=== PATIENT | female | born 1950 | race Caucasian/White ===

== ENCOUNTER 2020-09-15 14:49 | Outpatient (REF) | payer MEDICARE, SELFPAY ==
[2020-09-15 16:51] LABS: MANUAL DIFF FLAG NO
[2020-09-15 16:54] LABS: Basophils Absolute Auto 0.1 X10*3/uL (0.0-0.2); Basophils Percent Auto 0.6 % (0-2); Eosinophils Absolute Auto 0.2 X10*3/uL (0.0-0.4); Eosinophils Percent Auto 2.4 % (0-4); Hematocrit 45.4 % (37-47); Hemoglobin 14.6 g/dl (12.0-16.0); Imm Gran Abs Auto 0.03 X10*3/uL (0.00-0.03); Imm Gran Pct Auto 0.4 % (0.0-0.4); Lymphocytes Absolute Auto 1.6 X10*3/uL (1.2-4.9); Lymphocytes Percent Auto 19.6 % (20-40); Mean Corpuscular HGB Conc 32.2 g/dl (31.0-35.0); Mean Corpuscular Hemoglobin 28.1 pg (27.0-33.0); Mean Corpuscular Volume 87.3 fL (80-98); Mean Platelet Volume 10.3 fL (9.4-12.3); Monocytes Absolute Auto 0.6 X10*3/uL (0.1-1.2); Monocytes Percent Auto 7.1 % (2-11); Neutrophils Absolute Auto 5.7 X10*3/uL (2.0-8.3); Neutrophils Percent Auto 69.9 % (45-73); Platelet Count 254 X10*3/uL (160-400); Red Cell Distribution Width 14.2 % (11.0-16.0); White Blood Count 8.2 X10*3/uL (4.8-10.8)
[2020-09-15 17:12] LABS: Anion Gap 18 (12-20); Blood Urea Nitrogen 19 mg/dL (9-16); Calcium 9.7 mg/dL (8.4-10.2); Carbon Dioxide 24 mmol/L (22-29); Chloride 101 mmol/L (96-108); Estimated Glomerular Filt Rate > 60; Glucose Random 114 mg/dL (60-115); Sodium 139 mmol/L (135-145)
[2020-09-16 04:36] LABS: LDL Cholesterol Direct 91 mg/dL (<100)
[2020-09-16 06:55] LABS: Estimated Average Glucose 114 mg/dL; Hemoglobin A1c % 5.6 %
== END 2020-09-15 14:50 | disposition home or self-care (01) ==
LOC: HO.HMGCLDS 14:49
PROVIDERS: PCP Internal Medicine; Visit Provider Internal Medicine
DX: R73.01 Impaired fasting glucose (principal); I10 Essential (primary) hypertension; E78.9 Disorder of lipoprotein metabolism, unspecified; M62.830 Muscle spasm of back
CPT/HCPCS: 36415; 80048; 83036; 83721; 85025

== ENCOUNTER 2021-08-21 12:29 | Outpatient (REF) | payer MEDICARE, SELFPAY ==
[2021-08-21 13:53] LABS: MANUAL DIFF FLAG NO
[2021-08-21 13:59] LABS: Basophils Absolute Auto 0.1 X10*3/uL (0.0-0.2); Basophils Percent Auto 0.9 % (0-2); Eosinophils Absolute Auto 0.2 X10*3/uL (0.0-0.4); Eosinophils Percent Auto 2.7 % (0-4); Hematocrit 45.9 % (37.0-47.0); Hemoglobin 14.5 g/dl (12.0-16.0); Imm Gran Abs Auto 0.03 X10*3/uL (0.00-0.03); Imm Gran Pct Auto 0.4 % (0.0-0.4); Lymphocytes Absolute Auto 1.6 X10*3/uL (1.2-4.9); Lymphocytes Percent Auto 19.3 % (20-40); Mean Corpuscular HGB Conc 31.6 g/dl (31.0-35.0); Mean Corpuscular Hemoglobin 26.9 pg (27.0-33.0); Mean Platelet Volume 9.8 fL (9.4-12.3); Monocytes Absolute Auto 0.8 X10*3/uL (0.1-1.2); Monocytes Percent Auto 9.6 % (2-11); Neutrophils Absolute Auto 5.5 x10*3/uL (2.0-8.3); Neutrophils Percent Auto 67.1 % (45-73); Platelet Count 274 X10*3/uL (160-400); Red Cell Distribution Width 15.3 % (11.0-16.0); White Blood Count 8.2 X10*3/uL (4.8-10.8)
[2021-08-21 14:10] LABS: Estimated Average Glucose 120 mg/dL; Hemoglobin A1C 151.5229 umol/L; Hemoglobin A1c % 5.8 %
[2021-08-21 14:17] LABS: Alanine Aminotransferase 16 U/L (0-31); Albumin Level 4.4 g/dL (3.5-5.0); Alkaline Phosphatase 136 U/L (39-117); Anion Gap 14 (12-20); Aspartate Amino Transferase 20 U/L (5-31); Bilirubin Total 0.4 mg/dL (0.0-1.0); Blood Urea Nitrogen 16 mg/dL (9-16); Calcium 10.1 mg/dL (8.4-10.2); Carbon Dioxide 26 mmol/L (22-29); Chloride 100 mmol/L (96-108); Estimated Glomerular Filt Rate > 60; Glucose Random 131 mg/dL (60-115); Potassium 3.9 mmol/L (3.3-5.1); Sodium 136 mmol/L (135-145); Total Protein 7.7 g/dL (6.5-8.0)
[2021-08-21 14:41] LABS: TSH reflex Free T4 6.84 uIU/mL (0.32-4.0)
[2021-08-21 15:13] LABS: Free T4 (Free Thyroxine) 0.93 ng/dL (0.71-1.85)
== END 2021-08-21 12:30 | disposition home or self-care (01) ==
LOC: HO.HMGCLDS 12:29
PROVIDERS: PCP Internal Medicine; Visit Provider Internal Medicine
DX: F33.2 Major depressive disorder, recurrent severe without psychotic features (principal); I10 Essential (primary) hypertension; M62.830 Muscle spasm of back; R73.01 Impaired fasting glucose; E66.09 Other obesity due to excess calories; G47.9 Sleep disorder, unspecified; E78.9 Disorder of lipoprotein metabolism, unspecified
CPT/HCPCS: 36415; 80053; 83036; 84439; 84443; 85025

== ENCOUNTER 2021-12-07 15:06 | Outpatient (REF) | payer MEDICARE, SELFPAY ==
[2021-12-07 16:43] LABS: Estimated Average Glucose 120 mg/dL; Hemoglobin A1c % 5.8 %
[2021-12-07 16:55] LABS: Alanine Aminotransferase 10 U/L (0-31); Albumin Level 4.2 g/dL (3.5-5.0); Alkaline Phosphatase 149 U/L (39-117); Anion Gap 17 (12-20); Aspartate Amino Transferase 21 U/L (5-31); Bilirubin Total 0.6 mg/dL (0.0-1.0); Blood Urea Nitrogen 15 mg/dL (9-16); Calcium 9.4 mg/dL (8.4-10.2); Carbon Dioxide 25 mmol/L (22-29); Chloride 99 mmol/L (96-108); Estimated Glomerular Filt Rate > 60; Glucose Random 125 mg/dL (60-115); Sodium 137 mmol/L (135-145); Total Protein 7.4 g/dL (6.5-8.0)
[2021-12-07 17:14] LABS: TSH reflex Free T4 2.63 uIU/mL (0.32-4.0)
== END 2021-12-07 15:07 | disposition home or self-care (01) ==
LOC: HO.HMGCLDS 15:06
PROVIDERS: PCP Internal Medicine; Visit Provider Internal Medicine
DX: E78.9 Disorder of lipoprotein metabolism, unspecified (principal); F33.2 Major depressive disorder, recurrent severe without psychotic features; I10 Essential (primary) hypertension; N85.9 Noninflammatory disorder of uterus, unspecified; R00.0 Tachycardia, unspecified; R73.01 Impaired fasting glucose; E66.09 Other obesity due to excess calories
CPT/HCPCS: 36415; 80053; 83036; 84443

== ENCOUNTER → 2022-02-27 13:11 | Outpatient (BNVA) | payer MEDICARE, SELFPAY | PROVIDERS: PCP Internal Medicine; Referring Provider Internal Medicine; Visit Provider Internal Medicine | DX: Z01.810 Encounter for preprocedural cardiovascular examination (principal); R00.0 Tachycardia, unspecified | CPT/HCPCS: 93005; 99202 ==

== ENCOUNTER → 2022-03-13 12:55 | Outpatient (REF) | payer MEDICARE, SELFPAY ==
--- NOTE | 2022-03-13 12:58 | CA_ITS ---
Transthoracic Echocardiogram Patient (Last, First, Middle): Martha Rivas, Gender: Female Date of : 1950 Age: 71 Procedure Date: 03/13/2022 Procedure Type: Transthoracic Echocardiogram Location: OP Height: 154.94 cm Weight: 102.06 kg BSA: 1.99 m2 Heart Rate: bpm BP: 134 / 80 mmHg Fuel Cell Battery Technician: Referring MD: Dawood Chavez MD Camp Attendant: Mahendra Duncan MD Symptoms: R00.0 - Tachycardia, unspecified Study Quality: Adequate ECG Rhythm: Sinus Tachycardia Conclusions: - 1. Normal LV systolic function with grade 1 diastolic dysfunction 2. Normal cardiac valvular Doppler 3. Normal RV systolic pressure with low right atrial pressures 4. No gross pericardial effusion Findings Left Ventricle Normal left ventricular size, thickness, and systolic function. The visually estimated ejection fraction is between 60-65%. Spectral Doppler is indicative of an impaired relaxation filling pattern. E/E prime ratio is <8, consistent with normal filling pressures. Evidence suggests grade I (mild) diastolic dysfunction. Right Ventricle Normal right ventricular cavity size and systolic function. Atria The left atrium is normal in size. There is lipomatous hypertrophy of the interatrial septum. There is no evidence of interatrial shunt. The right atrium is normal in size. Aortic Valve The aortic valve structure and function is likely normal. There is no aortic valve stenosis. There is no aortic valve regurgitation. Mitral Valve Likely normal mitral valve structure and function. There is trace mitral valve regurgitation. There is no mitral valve stenosis. Pulmonic Valve The pulmonic valve was not well visualized. Tricuspid Valve Likely normal tricuspid valve structure and function. There is trace tricuspid valve regurgitation. The right ventricular systolic pressure is normal. The right ventricular systolic pressure is 18 mmHg. Low right atrial pressure. There is no evidence of pulmonary hypertension. Great Vessels All visible segments of the aorta are normal in size. The pulmonary artery was not well visualized. Venous The inferior vena cava is collapsed, consistent with reduced intravascular volume. Pericardium/Pleural There is no evidence of pericardial effusion. Prior Study Comparison No prior study available for comparison. Measurements 2D Linear Measurements IVSd: 1.18 0.6-0.9/0.6-1.0 cm LVIDd: 4.18 3.9-5.3/4.2-5.9 cm LVIDd Index: 2.10 2.4-3.2/2.2-3.1 cm/m2 LVIDs: 2.60 2.0-3.6 cm LVPWd: 1.10 0.7-1.1 cm Ao Root: 3.20 2.1-3.5 cm LA Diam: 2.90 2.7-3.8/3.0-4.0 cm LAIDs Index: 1.46 1.5-2.3 cm/m2 LV Mass: 204.41 67-162/88-224 g LV Mass Index: 102.72 43-95/49-115 g/m2 LVOT Diam: 2.20 3.0+(-)1.3 cm Mitral Valve MV Pk E: 0.48 MV PK A: 1.04 MV Decel Time: 115.00 E/A: 0.50 E'Lateral: 7.18 E'Medial: 5.44 E/E' Med: 8.80 E/E' Lat: 6.60 PHT: 34.00 MVA PHT: 6.47 Decel Granite: 4.15 Aortic Valve AoV Pk Luis Carlos: 1.38 AoV Mn Luis Carlos: 0.91 AoV VTI: 0.22 AoV Pk Grad: 8.00 Aov Mn Grad: 4.00 LISA Cont.VTI: 3.16 LVOT LVOT Pk Luis Carlos: 1.04 LVOT Mn Luis Carlos: 0.65 LVOT VTI: 0.18 LVOT Pk Grad: 4.00 LVOT Mn Grad: 2.00 LVOT Diam: 2.20 LVOT Area: 3.80 Diastolic Function MV Pk E: 0.48 MV Pk A: 1.04 E/A: 0.50 E'Medial: 5.44 E/E' Med: 8.80 E' Laterial: 7.18 E/E' Lat: 6.60 Right Ventricle TAPSE (mm): 36.00 TVS' Luis Carlos: 19.00 Tricuspid Valve TR Pk Luis Carlos: 1.95 TR Pk Grad: 15.00 RA Press: 3.00 RVSP: 18.00 Great Vessels Aorta Ao Root-2D: 3.20 2.0-3.7 cm Ao Asc: 3.70 2.1-3.4 cm Pulmonary Valve PV Pk Luis Carlos: 0.94 Peak PV Grad: 4.00 Updated in Other Vendor System with Status of Final Mahendra Duncan MD electronically signed on 03/13/2022 4:03:35 PM with status of Final
== END ==
LOC: HO.CARD 12:55
PROVIDERS: PCP Internal Medicine; Visit Provider Internal Medicine
DX: Z01.810 Encounter for preprocedural cardiovascular examination (principal); R00.0 Tachycardia, unspecified
CPT/HCPCS: 93306

== ENCOUNTER 2022-07-03 14:07 | Outpatient (REF) | payer MEDICARE, SELFPAY ==
[2022-07-03 16:31] LABS: MANUAL DIFF FLAG NO
[2022-07-03 16:42] LABS: Basophils Absolute Auto 0.1 X10*3/uL (0.0-0.2); Basophils Percent Auto 0.7 % (0-2); Eosinophils Absolute Auto 0.2 X10*3/uL (0.0-0.4); Eosinophils Percent Auto 2.5 % (0-4); Hemoglobin 13.4 g/dl (12.0-16.0); Imm Gran Abs Auto 0.04 X10*3/uL (0.00-0.03); Imm Gran Pct Auto 0.5 % (0.0-0.4); Lymphocytes Absolute Auto 1.3 X10*3/uL (1.2-4.9); Lymphocytes Percent Auto 15.3 % (20-40); Mean Corpuscular HGB Conc 30.5 g/dl (31.0-35.0); Mean Corpuscular Hemoglobin 25.7 pg (27.0-33.0); Mean Corpuscular Volume 84.3 fL (80.0-98.0); Mean Platelet Volume 9.8 fL (9.4-12.3); Monocytes Absolute Auto 0.5 X10*3/uL (0.1-1.2); Monocytes Percent Auto 6.5 % (2-11); Neutrophils Absolute Auto 6.1 x10*3/uL (2.0-8.3); Neutrophils Percent Auto 74.5 % (45-73); Platelet Count 324 X10*3/uL (160-400); Red Blood Count 5.22 X10*6/uL (4.20-5.50); Red Cell Distribution Width 16.9 % (11.0-16.0); White Blood Count 8.2 X10*3/uL (4.8-10.8)
[2022-07-03 17:01] LABS: Alanine Aminotransferase 12 U/L (0-31); Alkaline Phosphatase 139 U/L (39-117); Anion Gap 16 (12-20); Aspartate Amino Transferase 20 U/L (5-31); Bilirubin Total 0.4 mg/dL (0.0-1.0); Blood Urea Nitrogen 13 mg/dL (9-16); Calcium 9.3 mg/dL (8.4-10.2); Carbon Dioxide 26 mmol/L (22-29); Chloride 103 mmol/L (96-108); Estimated Glomerular Filt Rate 53; Glucose Random 185 mg/dL (60-115); Potassium 3.8 mmol/L (3.3-5.1); Sodium 141 mmol/L (135-145)
[2022-07-03 17:17] LABS: TSH reflex Free T4 5.32 uIU/mL (0.32-4.0)
[2022-07-03 17:49] LABS: Free T4 (Free Thyroxine) 0.98 ng/dL (0.71-1.85)
[2022-07-05 00:48] LABS: LDL Cholesterol Direct 123 mg/dL (<100)
== END 2022-07-03 14:08 | disposition home or self-care (01) ==
LOC: HO.HMGCLDS 14:07
PROVIDERS: PCP Internal Medicine; Visit Provider Internal Medicine
DX: E03.8 Other specified hypothyroidism (principal); E66.09 Other obesity due to excess calories; E78.9 Disorder of lipoprotein metabolism, unspecified; F33.2 Major depressive disorder, recurrent severe without psychotic features; G47.9 Sleep disorder, unspecified; I10 Essential (primary) hypertension; M62.830 Muscle spasm of back; R73.01 Impaired fasting glucose
CPT/HCPCS: 36415; 80053; 83721; 84439; 84443; 85025

== ENCOUNTER 2023-02-25 14:14 | Outpatient (AMB) | payer MEDICARE, SELFPAY ==
[2023-02-25 14:23] VITALS: BP 122/84; PULSE 114; O2SAT 94; BMI 47.7
--- NOTE | 2023-02-25 14:23 | MHC.PC.OV ---
Vital Signs 02/25/23 14:23 Height 5 ft 1 in Weight 252 lb 4 oz BMI 47.7 BP 122/84 Blood Pressure Location Lt brachial Position Sitting Pulse 114 H Pulse Source Pulse Oximeter Pulse Oximetry (%) 94 Oxygen Delivery Method Room Air Intake Visit Reasons: HDF/Blood Clots~ Allergies No Known Allergies Allergy (Verified 02/25/23 14:24) Environmental Allergy (Unknown, Uncoded 02/27/22 13:20) Unknown Medication List - Last Reconciled 02/25/23 by Diaz Borges MD aripiprazole (Abilify) 15 mg PO BEDTIME duloxetine (Cymbalta) 60 mg PO DAILY levothyroxine 50 mcg PO DAILY 90 days lisinopril 5 mg PO DAILY 90 days rivaroxaban (Xarelto) 15 mg PO BID 21 days simvastatin 20 mg PO BEDTIME tizanidine 4 mg PO BID 90 days Tobacco use date assessed: 02/25/23 Fall risk assessment: No Falls in past year Last assessed Fall Risk: 02/25/23 Dental Screening Dental Screen Date: 02/25/23 Did you have a dental visit in the last 12 months?: No Did you have a dental problem in the last 6 months where you did not have access to dental care?: No Was dental information given to patient?: Patient declined HPI HDF/Blood Clots~ HPI Details Patient is a 32-year-old female who has not been seen in our office since early this year came in today to have a follow-up from emergency room visit dated 02/26/2023. She has a history of hypertension, hyperlipidemia, recently diagnosed with DVT of left lower extremity. She presented to emergency room with chief complaint of pain to her right extremity and found to have DVT bilateral. She did verbalize that Eliquis that was prescribed for DVT is too expensive. However it was found that co-pay is 40 dollars upon discharge patient was instructed to restart the medication. During the hospital course patient started having vaginal bleeding ultrasound transvaginal revealed 5.[address] scan of abdomen and pelvis revealed 7.1 cm cervical mass with proximal dilated fluid filled uterus. There were multiple enlarged mesenteric, pelvic, retroperitoneal lymph nodes along with intermediate hepatic lesion highly concerning for metastatic disease She has already seen Oncology [facility] and will be starting chemotherapy soon Patient suffers from depression, and is seeing a psychiatrist , she has a diagnosis of bipolar disorder Hypothyroidism: Continue levothyroxine 50 mcg I have told her to have thyroid checked when she have next set of lab ordered before chemotherapy Patient is also on Tizenadin 4 mg, for chronic back spasms. [facility] Medical History Impaired fasting blood sugar Difficulty sleeping Depression, major, severe recurrence Hypertension, essential Lipid disorder Back muscle spasm Surgical History History of umbilical hernia repair Family History Father Brain tumor Mother Pneumonia Maternal Grandfather No problems noted. Maternal Grandmother No problems noted. Paternal Grandfather No problems noted. Paternal Grandmother No problems noted. Social History Housing: Other (mobile home) Patient Tobacco Use Status: Never used Tobacco e-Cigarette/Vaping Use: Never Used Second Hand Smoke Exposure: No Current occupational status: retired Cognitive needs: No Hearing needs: No Vision needs: Yes Questionnaire PHQ-9 Over the last 2 weeks, how often have you been bothered by any of the following problems? 1. Little interest or pleasure in doing things: more than half the days 2. Feeling down, depressed, or hopeless: nearly every day 3. Trouble falling or staying asleep, or sleeping too much: nearly every day 4. Feeling tired or having little energy: more than half the days 5. Poor appetite or overeating: nearly every day 6. Feeling bad about yourself - or that you are a failure or have let yourself or your family down: nearly every day 7. Trouble concentrating on things, such as reading the newspaper or watching television: more than half the days 8. Moving or speaking so slowly that other people could have noticed. Or the opposite - being so fidgety or restless that you have been moving around a lot more than usual: several days 9. Thoughts that you would be better off or of hurting yourself in some way: not at all Total score: 19 Depression Screening Interpretation: Positive Depression Screening Follow-up: Existing condition and In treatment Depression Screening Done: Yes 14720 - PHQ-9 Billing: Yes Source: Developed by Drs. Janak Miller, Brittney Culp, Jak García and colleagues, with an educational cordell from [employer]. Thrive Questionnaire Date Thrive assessed: 02/25/23 I am a: Patient What is your living situation today?: I have a steady place to live Within the past 12 months, did the food you bought not last and you didn't have the money to get more?: Never true Within the past 12 months, did you worry whether your food would run out before you got money to buy more?: Never true Do you have trouble paying for medicines?: Yes Do you have trouble getting transportation to medical appointments?: Yes Do you have trouble paying your heating and electricity bill?: Yes Do you have trouble taking care of your child, family member or friend?: No Do you have trouble with day-to-day activities such as bathing, preparing meals, shopping, managing finances, etc.?: No Are you currently unemployed and looking for a job?: No Are you interested in more education?: No Please select the resources that you would like help with: None Currently or been in a relationship where the following occur: no concerns reported MANAN-7 AMB Questionnaire MANAN-7 Date MANAN - 7 assessed: 02/25/23 Feeling nervous, anxious, or on edge: 2 = More than half the days Not being able to stop or control worryin = More than half the days Worrying too much about different things: 2 = More than half the days Trouble relaxin = More than half the days Being so restless that it is hard to sit still: 2 = More than half the days Becoming easily annoyed or irritable: 2 = More than half the days Feeling afraid as if something awful might happen: 2 = More than half the days Total MANAN-7 score (0-4 normal; 5-9 mild; 10-14 moderate; 15-21 severe): 14 Source: Developed by Drs. Janak Miller, Jak Marsh and colleagues, with an educational cordell from [employer]. MANAN-7 Assessment Billing MANAN-7 Assessment Tool: MANAN-7 Assessment 23092 Review of Systems Const Denies chills and Denies fever(s) ENT Denies epistaxis and Denies nasal discharge Card Denies chest pain Resp Denies chest congestion, Denies cough and Denies hemoptysis GI Denies diarrhea and Denies nausea Skin/Breast Denies rash Neuro Reports no additional complaints Psych Reports no additional complaints Endo Reports no additional complaints Physical exam (Primary Care) Vital Signs: Last Vital Signs Pulse 114 H 02/25/23 14:23 BP 122/84 02/25/23 14:23 Pulse Ox 94 02/25/23 14:23 Oxygen Delivery Method Room Air 02/25/23 14:23 BMI result Body Mass Index 47.7 Tobacco/Smoking Status: Tobacco use Status Tobacco use date assessed 02/25/23 02/25/23 14:26 Patient Tobacco Use Status Never used Tobacco 02/25/23 14:26 e-Cigarette/Vaping Use Never Used 02/25/23 14:26 PHQ-9: PHQ-9 Score PHQ-9: Total score 19 02/25/23 15:02 Depression Screening Interpretation: Positive Depression Screening Follow-up: Existing condition and In treatment Thrive Assessment: Date of Thrive Assessment Date Thrive assessed 02/25/23 02/25/23 15:02 Currently or been in a relationship where the following occur: no concerns reported Const General: cooperative, comfortable and no acute distress Orientation/consciousness: patient oriented x3 HENMT Head: Yes normocephalic Eyes General: appearance normal, both eyes and all related structures Neck Neck: Yes supple Resp Effort & Inspection: normal respiratory effort, no cough and no stridor Cardio Rhythm: regular rhythm Heart sounds: S1 normal heart sound present and S2 normal heart sound present Skin General skin exam: turgor normal Neuro General: patient oriented x3, tone normal and moves all extremities Assessment and Plan Assessment & Plan (1) Metastatic cancer: Code(s): C79.9 - Secondary malignant neoplasm of unspecified site Qualifiers: Area of secondary neoplastic involvement: genital organ Qualified Code(s): C79.82 - Secondary malignant neoplasm of genital organs (2) Acute deep venous thrombosis (DVT) determined by ultrasound: Code(s): I82.409 - Acute embolism and thrombosis of unspecified deep veins of unspecified lower extremity (3) Other specified hypothyroidism: Code(s): E03.8 - Other specified hypothyroidism (4) Depression, major, severe recurrence: Code(s): F33.2 - Major depressive disorder, recurrent severe without psychotic features Qualifiers: Psychotic features: with psychotic features Qualified Code(s): F33.3 - Major depressive disorder, recurrent, severe with psychotic symptoms (5) Bipolar disorder: Code(s): F31.9 - Bipolar disorder, unspecified Qualifiers: Active/Remission status: in full remission Most recent bipolar episode type: depressed Qualified Code(s): F31.76 - Bipolar disorder, in full remission, most recent episode depressed (6) Back muscle spasm: Code(s): M62.830 - Muscle spasm of back Plan Patient is a 32-year-old female who has not been seen in our office since early this year came in today to have a follow-up from emergency room visit dated 02/26/2023. She has a history of hypertension, hyperlipidemia, recently diagnosed with DVT of left lower extremity. She presented to emergency room with chief complaint of pain to her right extremity and found to have DVT bilateral. She did verbalize that Eliquis that was prescribed for DVT is too expensive. However it was found that co-pay is 40 dollars upon discharge patient was instructed to restart the medication. During the hospital course patient started having vaginal bleeding ultrasound transvaginal revealed 5.[address] scan of abdomen and pelvis revealed 7.1 cm cervical mass with proximal dilated fluid filled uterus. There were multiple enlarged mesenteric, pelvic, retroperitoneal lymph nodes along with intermediate hepatic lesion highly concerning for metastatic disease She has already seen Oncology [facility] and will be starting chemotherapy soon Patient suffers from depression, and is seeing a psychiatrist , she has a diagnosis of bipolar disorder Hypothyroidism: Continue levothyroxine 50 mcg I have told her to have thyroid checked when she have next set of lab ordered before chemotherapy Patient is also on Tizenadin 4 mg, for chronic back spasms. 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
== END 2023-02-25 15:19 | disposition home or self-care (01) ==
PROVIDERS: PCP Internal Medicine; Visit Provider Internal Medicine
DX: C79.82 Secondary malignant neoplasm of genital organs (principal); I82.409 Acute embolism and thrombosis of unspecified deep veins of unspecified lower extremity; F33.3 Major depressive disorder, recurrent, severe with psychotic symptoms; E03.8 Other specified hypothyroidism; M62.830 Muscle spasm of back
CPT/HCPCS: 99214

== ENCOUNTER 2024-01-02 10:30 | Outpatient (AMB) | payer MEDICARE, SELFPAY ==
[2024-01-02 10:44] VITALS: BP 136/82; PULSE 90; O2SAT 97
--- NOTE | 2024-01-02 10:44 | A.OFFPC_ITS ---
Vital Signs 01/02/24 10:44 Weight 220 lb 6 oz BP 136/82 Blood Pressure Location Rt brachial Position Sitting Pulse 90 Pulse Source Palpation Pulse Oximetry (%) 97 Oxygen Delivery Method Room Air Intake Visit Reasons: Medication Refill won't be approve until seen Allergies No Known Allergies Allergy (Verified 02/25/23 14:24) Environmental Allergy (Unknown, Uncoded 02/27/22 13:20) Unknown Medication List - Last Reconciled 01/02/24 by Diaz Borges MD tizanidine 4 mg PO BID 90 days Tobacco use date assessed: 01/02/24 Fall risk assessment: No Falls in past year Last assessed Fall Risk: 01/02/24 Dental Screening Dental Screen Date: 01/02/24 Did you have a dental visit in the last 12 months?: No Did you have a dental problem in the last 6 months where you did not have access to dental care?: No Was dental information given to patient?: No HPI Medication Refill won't be approve until seen HPI Details Patient is 73-year-old female who was last seen February last year Patient is going to [facility] for the treatment of Uterine serous carcinoma stage IVB She is undergoing chemotherapy every month and blood test before the chemotherapy She came in today to get a script for tizanidine 2 mg that she takes once a day and sometimes 2 times a day Patient have a chronic lumbar back pain and medication helps her with the spasms She offer no other complaints Patient will return in 6 months for follow-up appointment [facility] Medical History Impaired fasting blood sugar Difficulty sleeping Depression, major, severe recurrence Hypertension, essential Lipid disorder Back muscle spasm Surgical History History of umbilical hernia repair Family History Father Brain tumor Mother Pneumonia Maternal Grandfather No problems noted. Maternal Grandmother No problems noted. Paternal Grandfather No problems noted. Paternal Grandmother No problems noted. Social History Housing: Other (mobile home) Patient Tobacco Use Status: Never used Tobacco e-Cigarette/Vaping Use: Never Used Second Hand Smoke Exposure: No Current occupational status: retired Cognitive needs: No Hearing needs: No Vision needs: Yes Questionnaire PHQ-9 Over the last 2 weeks, how often have you been bothered by any of the following problems? 54834 - PHQ-9 Billing: Patient declined-do not bill Source: Developed by Drs. Janak Miller, Brittney Culp, Jak García and colleagues, with an educational cordell from [employer]. Thrive Questionnaire Date Thrive assessed: 02/25/23 I am a: Patient What is your living situation today?: I have a steady place to live Within the past 12 months, did the food you bought not last and you didn't have the money to get more?: Never true Within the past 12 months, did you worry whether your food would run out before you got money to buy more?: Never true Do you have trouble paying for medicines?: No Do you have trouble getting transportation to medical appointments?: Yes Do you have trouble paying your heating and electricity bill?: No Do you have trouble taking care of your child, family member or friend?: No Do you have trouble with day-to-day activities such as bathing, preparing meals, shopping, managing finances, etc.?: No Are you interested in more education?: No Please select the resources that you would like help with: None Currently or been in a relationship where the following occur: No concerns reported THRIVE Score: 1 AUDIT C Alcohol Use Questionnaire (AUDIT-C) 1. How often do you have a drink containing alcohol?: Never Total Score: 0 MANAN-7 AMB Questionnaire MANAN-7 Date MANAN - 7 assessed: 02/25/23 Feeling nervous, anxious, or on edge: 0 = Not at all Not being able to stop or control worryin = Not at all Worrying too much about different things: 0 = Not at all Trouble relaxin = Not at all Being so restless that it is hard to sit still: 0 = Not at all Becoming easily annoyed or irritable: 0 = Not at all Feeling afraid as if something awful might happen: 0 = Not at all Total MANAN-7 score (0-4 normal; 5-9 mild; 10-14 moderate; 15-21 severe): 0 Source: Developed by Drs. Janak Miller, Brittney Culp, Jak García and colleagues, with an educational cordell from [employer]. Review of Systems Const Denies chills and Denies fever(s) ENT Denies epistaxis and Denies nasal discharge Card Denies chest pain Resp Denies chest congestion, Denies cough and Denies hemoptysis GI Denies diarrhea and Denies nausea Skin/Breast Denies rash Neuro Reports no additional complaints Psych Reports no additional complaints Endo Reports no additional complaints Physical exam (Primary Care) Vital Signs: Last Vital Signs Pulse 90 01/02/24 10:44 BP 136/82 01/02/24 10:44 Pulse Ox 97 01/02/24 10:44 Oxygen Delivery Method Room Air 01/02/24 10:44 Tobacco/Smoking Status: Tobacco use Status Tobacco use date assessed 01/02/24 01/02/24 10:46 Patient Tobacco Use Status Never used Tobacco 01/02/24 10:46 e-Cigarette/Vaping Use Never Used 01/02/24 10:46 Thrive Assessment: Date of Thrive Assessment Date Thrive assessed 02/25/23 01/02/24 10:46 Currently or been in a relationship where the following occur: No concerns reported Const General: cooperative, comfortable and no acute distress Orientation/consciousness: patient oriented x3 HENMT Head: Yes normocephalic Eyes General: appearance normal, both eyes and all related structures Neck Neck: Yes supple Resp Effort & Inspection: normal respiratory effort, no cough and no stridor Cardio Rhythm: regular rhythm Heart sounds: S1 normal heart sound present and S2 normal heart sound present Skin General skin exam: turgor normal Neuro General: patient oriented x3, tone normal and moves all extremities Extrem Right lower extremity: no edema Left lower extremity: no edema Assessment and Plan Assessment & Plan (1) Back muscle spasm: Code(s): M62.830 - Muscle spasm of back (2) Metastatic cancer: Code(s): C79.9 - Secondary malignant neoplasm of unspecified site Qualifiers: Area of secondary neoplastic involvement: genital organ Qualified Code(s): C79.82 - Secondary malignant neoplasm of genital organs Plan Patient is 73-year-old female who was last seen February of last year Patient is going to [facility] for the treatment of Uterine serous carcinoma stage IVB She is undergoing chemotherapy every month and blood test before the chemotherapy She came in today to get a script for tizanidine 2 mg that she takes once a day and sometimes 2 times a day Patient have a chronic lumbar back pain and medication helps her with the spasms She offer no other complaints Patient will return in 6 months for follow-up appointment Medications: Changed From tizanidine 4 mg PO BID 90 days 180 tabs 1RF muscle spasticity To tizanidine 4 mg PO BID 90 days PRN 180 tabs 0RF muscle spasticity Coding Level of Care Code Est Pt Level 3 (26740) Diagnoses Back muscle spasm M62.830 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
== END 2024-01-02 11:02 | disposition home or self-care (01) ==
PROVIDERS: PCP Internal Medicine; Visit Provider Internal Medicine
DX: M62.830 Muscle spasm of back (principal); C79.82 Secondary malignant neoplasm of genital organs

== ENCOUNTER → 2024-01-02 10:30 | Outpatient (BNVA) | payer MEDICARE, SELFPAY | PROVIDERS: PCP Internal Medicine; Visit Provider Internal Medicine | DX: M62.830 Muscle spasm of back (principal); C79.82 Secondary malignant neoplasm of genital organs | CPT/HCPCS: 99212 ==

== ENCOUNTER 2024-04-29 08:27 | Outpatient (AMB) | payer MEDICARE, SELFPAY ==
--- NOTE | 2024-04-29 09:32 | A.OFFPC_ITS ---
Intake Visit Reasons: Med Follow up Allergies No Known Allergies Allergy (Verified 04/29/24 09:33) Environmental Allergy (Unknown, Uncoded 02/27/22 13:20) Unknown Medication List - Last Reconciled 04/29/24 by Diaz Borges MD tizanidine 4 mg PO BID PRN 90 days Tobacco use date assessed: 04/29/24 Fall risk assessment: No Falls in past year Last assessed Fall Risk: 04/29/24 Dental Screening Dental Screen Date: 04/29/24 Did you have a dental visit in the last 12 months?: No Did you have a dental problem in the last 6 months where you did not have access to dental care?: No Was dental information given to patient?: Patient has dentist HPI Med Follow up HPI Details Telehealth Attestation Documentation of this visit conducted via phone call is accurate to the best of my ability. This is a tele health medical visit - The patient is a 73-year-old female pr esenting with issues related to pain management. - Currently under the care of Dr. Spicer for both cancer treatment and pain management. Patient has uterine serous carcinoma stage IVB - Expressed concerns regarding medicatio n refills for muscle spasms - Taking Oxycodone, through Dr. Spicer - Transition guidance to communicate nee ds to Dr. Spicer emphasized during the call. Denies it in that patient is taking muscle spasms need to be filled through pain management Plan The patient's ongoing management for cancer-related pain and muscle spasms will continue under the supervision of Dr. Spicer, her oncologist. As part of transitioning all pain management to him, she has been instructed to communicate her need for muscle relaxants, such as Tizanidine, especially given her twice- daily use for spasm control. Ensuring accurate medication lists and discussions about current needs during her ongoing interaction with Dr. Spicer will support her tailored care plan. It is essential to maintain consistent communication with her oncology provider to address and organize her comprehensive pain management effectively. [facility] Medical History Impaired fasting blood sugar Difficulty sleeping Depression, major, severe recurrence Hypertension, essential Lipid disorder Back muscle spasm Surgical History History of umbilical hernia repair Family History Father Brain tumor Mother Pneumonia Maternal Grandfather No problems noted. Maternal Grandmother No problems noted. Paternal Grandfather No problems noted. Paternal Grandmother No problems noted. Social History Housing: Other (mobile home) Patient Tobacco Use Status: Never used Tobacco e-Cigarette/Vaping Use: Never Used Second Hand Smoke Exposure: No Current occupational status: retired Cognitive needs: No Hearing needs: No Vision needs: Yes Questionnaire PHQ-9 Over the last 2 weeks, how often have you been bothered by any of the following problems? 58032 - PHQ-9 Billing: Patient declined-do not bill Source: Developed by Drs. Janak Miller, Brittney Culp, Jak García and colleagues, with an educational cordell from [employer]. Thrive Questionnaire Date Thrive assessed: 04/29/24 I am a: Patient What is your living situation today?: I have a steady place to live Within the past 12 months, did the food you bought not last and you didn't have the money to get more?: Never true Within the past 12 months, did you worry whether your food would run out before you got money to buy more?: Never true Do you have trouble paying for medicines?: No Do you have trouble getting transportation to medical appointments?: Yes Do you have trouble paying your heating and electricity bill?: No Do you have trouble taking care of your child, family member or friend?: No Do you have trouble with day-to-day activities such as bathing, preparing meals, shopping, managing finances, etc.?: No Are you currently unemployed and looking for a job?: No Are you interested in more education?: No Please select the resources that you would like help with: None Currently or been in a relationship where the following occur: No concerns reported THRIVE Score: 1 AUDIT C Alcohol Use Questionnaire (AUDIT-C) 1. How often do you have a drink containing alcohol?: Never 3. How often do you have six or more drinks on one occasion?: Never Total Score: 0 Score Reviewed/Action Taken: Yes MANAN-7 AMB Questionnaire MANAN-7 Date MANAN - 7 assessed: 04/29/24 Feeling nervous, anxious, or on edge: 0 = Not at all Not being able to stop or control worryin = Not at all Worrying too much about different things: 0 = Not at all Trouble relaxin = Not at all Being so restless that it is hard to sit still: 0 = Not at all Becoming easily annoyed or irritable: 0 = Not at all Feeling afraid as if something awful might happen: 0 = Not at all Total MANAN-7 score (0-4 normal; 5-9 mild; 10-14 moderate; 15-21 severe): 0 Source: Developed by Drs. Janak Miller, Brittney Culp, Jak García and colleagues, with an educational cordell from [employer]. MANAN-7 Assessment Billing MANAN-7 Assessment Tool: MANAN-7 Assessment 97480 Review of Systems Const All systems reviewed & are unremarkable except as noted in HPI and below Physical exam (Primary Care) Tobacco/Smoking Status: Tobacco use Status Tobacco use date assessed 04/29/24 04/29/24 09:34 Patient Tobacco Use Status Never used Tobacco 04/29/24 09:33 e-Cigarette/Vaping Use Never Used 04/29/24 09:33 Thrive Assessment: Date of Thrive Assessment Date Thrive assessed 04/29/24 04/29/24 09:34 Currently or been in a relationship where the following occur: No concerns reported Telehealth Telehealth Telehealth Platform: [facility] Location of provider rendering services: practice address Location of patient: address on file Patient Identification confirmed using: Name, : Yes Telehealth method: voice only Patient verbally consented to treatment: Yes Patient verbally consented to billing insurance company: Yes Patient informed of any privacy concerns related to visit: Yes Minutes spent on Phone/Video with Pt.: 12 Coding Level of Care Code Tele Est Pt Level 3 (95090) Diagnoses 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 Back muscle spasm M62.830 Additional Codes MANAN-7 Assessment Billing - MANAN-7 Assessment Tool: MANAN-7 Assessment 37302 ([id number]) Assessment & Plan Assessment & Plan (1) Metastatic cancer: Code(s): C79.9 - Secondary malignant neoplasm of unspecified site Category: Medical Qualifiers: Area of secondary neoplastic involvement: genital organ Qualified Code(s): C79.82 - Secondary malignant neoplasm of genital organs (2) Back muscle spasm: Code(s): M62.830 - Muscle spasm of back Category: Medical Plan - The patient is a 73-year-old female presenting with issues related to pain management. - Currently under the care of Dr. Spicer for both cancer treatment and pain ma nagement. Patient has uterine serous carcinoma stage IVB - Expressed concerns regarding medication refills for muscle spasms - Taking Oxycodone, through Dr. Spicer - Transition guidance to communicate needs to Dr. Spicer emphasized during the call. Denies it in that patient is taking muscle spasms need to be filled through pain management Plan The patient's ongoing management for cancer-related pain and muscle spasms will continue under the supervision of Dr. Spicer, her oncologist. As part of transitioning all pain management to him, she has been instructed to communicate her need for muscle relaxants, such as Tizanidine, especially given her twice- daily use for spasm control. Ensuring accurate medication lists and discussions about current needs during her ongoing interaction with Dr. Spicer will support her tailored care plan. It is essential to maintain consistent communication with her oncology provider to address and organize her comprehensive pain management effectively.
== END 2024-04-29 10:38 | disposition home or self-care (01) ==
LOC: HO.HMCC 08:27
PROVIDERS: PCP Internal Medicine; Visit Provider Internal Medicine
DX: C79.82 Secondary malignant neoplasm of genital organs (principal); M62.830 Muscle spasm of back

== ENCOUNTER → 2024-04-29 08:27 | Outpatient (BNVA) | payer MEDICARE, SELFPAY | PROVIDERS: PCP Internal Medicine; Visit Provider Internal Medicine | DX: C79.82 Secondary malignant neoplasm of genital organs (principal); M62.830 Muscle spasm of back | CPT/HCPCS: 96127 ==